=== PATIENT | female | born 1935 | race Caucasian/White ===

== ENCOUNTER 2020-04-04 19:08 | Emergency (ER) | payer OTHER ==
[2020-04-04 19:18] VITALS: BP 163/59; PULSE 71; TEMP 98.4; BMI 20.5
[2020-04-04] MEDS ORDERED: NAPROXEN 375 MG TABLET PO ONE (20:17)
--- NOTE | 2020-04-04 20:20 | PDOC ---
History of Present Illness - General Chief Complaint: Injury Stated Complaint: FALL Time Seen by Provider: 04/04/20 19:23 History Source: Patient Exam Limitations: Clinical Condition - History of Present Illness Initial Comments: 04/04/20 20:26 Patient with no significant past medical history present with complaint of right knee pain with mild pain to left knee status post trip and fall on bilateral knees an hour prior to arrival. Patient reports she tripped on a curbside and fell on bilateral knees. Denies hitting head or loss of consciousness. Denies dizziness. Denies any other symptoms Occurred: reports: just prior to arrival Past History - Medical History Home Medications: Ambulatory Orders Meloxicam [Mobic] 15 mg PO DAILY PRN #20 tablet 04/04/20 COPD: No HTN: Yes Hypercholesterolemia: Yes Other medical history: HIV - Psycho-Social/Smoking History Smoking History: Never smoked - Substance Abuse Hx (Audit-C & DAST Scrn) How often the patient has a drink containing alcohol: Never Score: In Men: 4 or > Positive; In Women: 3 or > Positive: 0 Screen Result (Pos requires Nsg. Audit-10AR): Negative In the last yr the pt used illegal drug/Rx for NonMed reason: No Score: Yes response is considered Positive: 0 Screen Result (Positive result requires Nsg. DAST-10): Negative Review of Systems - Review of Systems Able to Perform ROS?: Yes Is the patient limited Vietnamese proficient: No Constitutional: No: Chills, Fever, Malaise HEENTM: No: Symptoms Reported Respiratory: No: Symptoms reported Cardiac (ROS): No: Symptoms Reported Musculoskeletal: Yes: Symptoms Reported, See HPI, Joint Pain (right knee pain), Joint Swelling (right knee swelling), Muscle Pain (b/l knee pain) Integumentary: No: Symptoms Reported Neurological: No: Symptoms reported, Dizziness All Other Systems: Reviewed and Negative *Physical Exam - Vital Signs Last Vital Signs Temp Pulse Resp BP Pulse Ox 98.4 F 71 19 163/59 L 99 04/04/20 19:13 04/04/20 19:13 04/04/20 19:13 04/04/20 19:13 04/04/20 19:13 - Physical Exam 04/04/20 20:30 GENERAL: Well developed, well nourished. Awake and alert. No acute distress. PULMONARY: No evidence of respiratory distress. MUSCULOSKELETAL : moderate tenderness to anterior patella of right knee with mild localized swelling to anterior patella of right knee. No joint effusion of right knee. Negative ballottement sign of right knee. No tenderness to left knee or swelling to left knee. Negative anterior and posterior drawer test of bilateral knees. SKIN: Warm and dry. Normal capillary refill. No bruising or ecchymosis to bilateral kn ees NEUROLOGICAL: Alert, awake, appropriate. No motor deficits in the lower extremities. Gait is normal without ataxia. PSYCHIATRIC: Cooperative. Good eye contact. Appropriate mood and affect. General Appearance: Yes: Nourished, Appropriately Dressed. No: Apparent Distress ED Treatment Course - RADIOLOGY Radiology Studies Ordered: Category Date Time Status KNEE 3 POS-RIGHT [RAD] Stat Radiology 04/04/20 19:24 Taken Medical Decision Making - Medical Decision Making 04/04/20 20:27 Patient with no significant past medical history present with complaint of right knee pain with mild pain to left knee status post trip and fall on bilateral knees an hour prior to arrival. Patient reports she tripped on a curbside and fell on bilateral knees. Denies hitting head or loss of consciousness. Denies dizziness. Denies any other symptoms Exam significant for moderate tenderness to anterior patella of right knee with mild localized swelling to anterior patella of right knee. No joint effusion of right knee. Negative ballottement sign of right knee. No tenderness to left knee or swelling to left knee. Negative anterior and posterior drawer test of bilateral knees. X-ray of right knee shows no acute abnormality. Patient symptoms likely knee contusion and strain. Bilateral knees wrapped with Azar bandage. Patient stable for discharge on meloxicam PRN for pain with advised to do cold compress today switch to hot compress tomorrow as needed for pain with orthopedics follow-up as needed Discharge - Discharge Information Problems reviewed: Yes Clinical Impression/Diagnosis: Right knee sprain Qualifiers: Encounter type: initial encounter Involved ligament of knee: unspecified ligament Qualified Code(s): S83.91XA - Sprain of unspecified site of right knee, initial encounter Strain of left knee Qualifiers: Encounter type: initial encounter Qualified Code(s): S86.912A - Strain of unspecified muscle(s) and tendon(s) at lower leg level, left leg, initial encounter Condition: Stable Disposition: HOME - Admission No - Additional Discharge Information Prescriptions: Meloxicam [Mobic] 15 mg PO DAILY PRN #20 tablet PRN Reason: knee pain - Follow up/Referral Referrals: Paolo Hernández NP [Primary Care Provider] - - Patient Discharge Instructions Patient Printed Discharge Instructions: DI for Knee Sprain Additional Instructions: X-ray of your knee shows no acute fracture or dislocation. Your pain and swelling is likely from knee sprain. Apply cold compress today and switch to hot compress tomorrow as needed for knee pain and swelling. Take prescribed medication as needed for knee pain. Follow-up referred orthopedist if no improvement in 4 days - Post Discharge Activity
== END 2020-04-04 20:36 | disposition home or self-care (01) ==
LOC: JERFT 19:08
DX: S83.91XA Sprain of unspecified site of right knee, initial encounter (principal); S86.912A Strain of unspecified muscle(s) and tendon(s) at lower leg level, left leg, initial encounter
CPT/HCPCS: 73562-TC-RT-FY; 99283-25

== ENCOUNTER 2020-06-14 11:40 | Emergency (ER) | payer OTHER ==
[2020-06-14 12:17] VITALS: BP 128/70; PULSE 86; BMI 22.3
[2020-06-14 14:06] LABS: BASO % 0.6 % (0-2.0); EOS % 2.1 % (0-4.5); HEMATOCRIT 40.5 % (32.4-45.2); HEMOGLOBIN 13.5 GM/dL (10.7-15.3); LYMPH % 37.5 % (8-40); MCH 39.5 pg (25.7-33.7); MCHC 33.3 g/dl (32.0-36.0); MEAN CELL VOLUME 118.4 fl (80-96); MEAN PLT VOLUME 8.8 fl (7.5-11.1); NEUT % 49.8 % (42.8-82.8); PLATELET COUNT 238 K/MM3 (134-434); RBC 3.42 M/mm3 (3.60-5.2); RDW 15.3 % (11.6-15.6); WHITE BLOOD COUNT 5.5 K/mm3 (4.0-10.0)
[2020-06-14 14:19] LABS: CHLORIDE 105 mmol/L (98-107); POTASSIUM 4.2 mmol/L (3.5-5.1); SODIUM 141 mmol/L (136-145)
[2020-06-14 14:21] LABS: CALCIUM 9.1 mg/dL (8.5-10.1)
[2020-06-14 14:22] LABS: ANION GAP 8 MMOL/L (8-16); BLOOD UREA NITROGEN 33.3 mg/dL (7-18); CO2 28 mmol/L (21-32); GLUCOSE,RANDOM 115 mg/dL (74-106)
[2020-06-14 14:24] LABS: SGPT/ALT 37 U/L (13-61)
[2020-06-14 14:25] LABS: CREATININE 0.9 mg/dL (0.55-1.3); SGOT/AST 37 U/L (15-37)
[2020-06-14 14:26] LABS: BILIRUBIN,TOTAL 0.4 mg/dL (0.2-1); TOT PROT 7.7 g/dl (6.4-8.2)
[2020-06-14 14:27] LABS: ALK PHOS 73 U/L (45-117)
[2020-06-14] MEDS ORDERED: LACTATED RINGERS SOLUTION 1000 ML INFUS.BAG IV ONE (14:34)
[2020-06-14 14:36] LABS: ANISOCYTOSIS 1+; MACROCYTOSIS 1+; PLATELET ESTIMATE NORMAL
== END 2020-06-14 14:51 | disposition left against medical advice (07) ==
LOC: JER 11:40
DX: R26.89 Other abnormalities of gait and mobility (principal)
CPT/HCPCS: 36415; 70450-TC; 80053; 84443; 84484; 85025; 93005; 93010; 99285-25

== ENCOUNTER 2020-11-08 15:12 | Emergency (ER) | payer OTHER ==
[2020-11-08 15:23] VITALS: BP 154/95; PULSE 91; TEMP 98.2; BMI 20.5
[2020-11-09 11:15] LABS: SARS-CoV-2 NAA Not Detected (Not Detected)
== END 2020-11-08 16:27 | disposition home or self-care (01) ==
LOC: JERFT 15:12
DX: Z11.52 Encounter for screening for COVID-19 (principal)
CPT/HCPCS: 99283-25; C9803; U0003; U0005